=== PATIENT | male | born 1955 ===

== ENCOUNTER 2021-01-14 05:30 | Day surgery (SDC) | payer OTHER ==
[~2021-01-14 05:30] MED LIST: ECOTRIN81 MG PO; LIPITOR20 MG PO; PROTONIX20 MG PO; TAMBOCOR150 MG PO; ZESTRIL5 MG PO
[2021-01-14] MEDS ORDERED: PERCOCET 5-3251 EACH PO (09:29)
[2021-01-14] MEDS ORDERED: RECTICARE30 GM TOP (09:29)
== END 2021-01-14 14:00 | disposition home or self-care (01) ==
LOC: CIR.AMB 05:30
PROVIDERS: ATTEND Surgery
DX: K64.3 Fourth degree hemorrhoids (principal); K64.4 Residual hemorrhoidal skin tags; Z20.822 Contact with and (suspected) exposure to COVID-19